=== PATIENT | female | born 1975 | race Caucasian/White ===

== ENCOUNTER 2021-03-18 09:50 | Emergency (ER) | payer MEDICARE ==
[2021-03-18 11:31] LABS: HEMOGLOBIN 14.4 gm/dl (12.3-15.3); RED BLOOD COUNT 4.74 M/UL (4.00-5.10); WHITE BLOOD COUNT 16.7 K/UL (4.5-11.0)
[2021-03-18 11:53] LABS: BUN/CREATININE RATIO 12 (0-10)
[2021-03-18 12:11] LABS: ADENOVIRUS F 40/41 Not Detected (Negative); ASTROVIRUS Not Detected (Negative); CAMPYLOBACTER Not Detected (Negative); CLOSTRIDIUM DIFFICILE TOX A/B Not Detected (Negative); CRYPTOSPORIDIUM Not Detected (Negative); E.COLI 0157 Not Detected (Negative); ENTAMOEBA HISTOLYTICA Not Detected (Negative); ENTEROAGGREGATIVE E.COLI (EAEC Not Detected (Negative); ENTEROPATHOGENIC E.COLI (EPEC) Not Detected (Negative); ENTEROTOXIGENIC E.COLI (ETEC) Not Detected (Negative); GIARDIA LAMBLIA Not Detected (Negative); NOROVIRUS GI/GII Not Detected (Negative); PLESIOMONAS SHIGELLOIDES Not Detected (Negative); ROTOVIRUS A Not Detected (Negative); SALMONELLA Not Detected (Negative); SAPOVIRUS Not Detected (Negative); SHIG/ENTEROINVAS.ECOLI (EIEC) Not Detected (Negative); SHIGA-LIK TOX.PRO.E.COLI (STEC Not Detected (Negative); VIBRIO Not Detected (Negative); VIBRIO CHOLERAE Not Detected (Negative); YERSINIA ENTEROCOLITICA Not Detected (Negative)
[2021-03-18] MEDS ORDERED: AUGMENTIN 875-1 EACH PO (14:23)
[2021-03-18] MEDS ORDERED: BENTYL 20MG TAB20 MG PO (14:23)
[2021-03-18] MEDS ORDERED: ZOFRAN4 MG PO (14:23)
== END 2021-03-18 14:40 | disposition home or self-care (01) ==
LOC: ER1 09:50
PROVIDERS: Physician Assistant
DX: K52.9 Noninfective gastroenteritis and colitis, unspecified (principal); Z20.822 Contact with and (suspected) exposure to COVID-19; Z88.5 Allergy status to narcotic agent
CPT/HCPCS: 80053; 81001; 82150; 82272; 83690; 85025; 87507; 93005; 96374; 96375; 99284; J2270; J2405; Q9967; U0002